=== PATIENT | female | born 1975 | race Caucasian/White ===

== ENCOUNTER 2018-09-17 14:23 | Emergency (ER) | payer OTHER ==
[2018-09-17 14:36] VITALS: TEMP 99
[2018-09-17] MEDS ORDERED: PROPARACAINE 0.5% OPHTH DROPS 15 ML BTL LEFT EYE STA (15:48)
--- NOTE | 2018-09-17 16:46 | ED ---
ENT HPI - General Chief complaint: ENT Stated complaint: [facility] FB OS Time Seen by Provider: 09/17/18 14:40 Source: patient Mode of arrival: ambulatory Limitations: no limitations - History of Present Illness Initial comments: Patient is a 43-year-old female presenting to the emergency department with pain to left eye. Patient states earlier today she was at work when a circular plastic piece with approximately 1 cm diameter fluid and hit her eye. Patient states it hit the medial aspect of her right eye. Patient states that her eye Tearing and she tried irrigating it with water several times until she came to the emergency department patient states that she still feels like there is something in her eye. Patient states that she has aching of her pain. Patient denies any blurry vision or headache. Patient states the pain is not radiating anywhere and she denies pain with extra ocular movements. - Related Data Allergies Allergy/AdvReac Type Severity Reaction Status Date / Time amoxicillin AdvReac Rash/Hives Verified 09/17/18 14:36 Review of Systems ROS Statement: Those systems with pertinent positive or pertinent negative responses have been documented in the HPI. ROS Other: All systems not noted in ROS Statement are negative. Past Medical History Past Medical History: No Reported History History of Any Multi-Drug Resistant Organisms: None Reported Past Surgical History: Hysterectomy Additional Past Surgical History / Comment(s): ectopic x 2 Past Psychological History: No Psychological Hx Reported Smoking Status: Current every day smoker Past Alcohol Use History: None Reported Past Drug Use History: Marijuana General Exam Limitations: no limitations General appearance: alert, in no apparent distress Head exam: Present: atraumatic, normocephalic, normal inspection Eye exam: Present: normal appearance, PERRL, EOMI, conjunctival injection ( mild), other (No pain with extra ocular movements). Absent: periorbital swelling Pupils: Present: normal accommodation Expanded Eyelids: Normal Inspection: Left Pupils: Regular, Round: Left Sclera/Conjunctival: Normal Inspection: Left ENT exam: Present: normal exam Neck exam: Present: normal inspection Respiratory exam: Present: normal lung sounds bilaterally. Absent: wheezes, rales Cardiovascular Exam: Present: regular rate, normal rhythm, normal heart sounds Neurological exam: Present: alert, oriented X3 Psychiatric exam: Present: normal affect, normal mood Skin exam: Present: warm, normal color Course Vital Signs 09/17/18 14:30 Temperature 99.0 F Pulse Rate 102 H Respiratory 18 Rate Blood Pressure 132/89 O2 Sat by Pulse 97 Oximetry Medical Decision Making - Medical Decision Making Patient is a 43-year-old female presenting to the emergency Department with left eye pain. Her left eye was examined with Wood's lamp and was unremarkable for any abrasion. Also a slit-lamp exam was performed and it showed minimal fluorescent stain accumulation near the medial aspect of that. Dr. Waddell also examined the patient and deemed that no immediate treatment or outpatient medication is necessary. Return parameters were discussed with patient. Patient advised to follow up with primary care. Disposition Clinical Impression: Pain, eye, left Disposition: HOME SELF-CARE Condition: Stable Instructions (If sedation given, give patient instructions): Eye Foreign Body (ED) Additional Instructions: Patient advised to follow-up with primary care. Patient laceration to emergency department is symptoms worsen. Is patient prescribed a controlled substance at d/c from ED?: No Referrals: None,Stated [Primary Care Provider] - 1-2 days Time of Disposition: 16:46
[2018-09-17 16:58] VITALS: BP 130/75; PULSE 88; RESP 20
== END 2018-09-17 16:57 | disposition home or self-care (01) ==
LOC: EC 14:23
DX: H57.12 Ocular pain, left eye (principal); F17.200 Nicotine dependence, unspecified, uncomplicated; Z88.0 Allergy status to penicillin; W22.8XXA Striking against or struck by other objects, initial encounter; Y92.69 Other specified industrial and construction area as the place of occurrence of the external cause; Y99.0 Civilian activity done for income or pay
CPT/HCPCS: 99283

== ENCOUNTER 2020-08-28 15:07 | Emergency (ER) | payer OTHER ==
[2020-08-28 15:12] VITALS: TEMP 98
--- NOTE | 2020-08-28 16:07 | ED ---
General Adult HPI - General Chief complaint: Abdominal Pain Stated complaint: abd pain Time Seen by Provider: 08/28/20 15:39 Source: patient Mode of arrival: ambulatory Limitations: no limitations - History of Present Illness Initial comments: Dictation was produced using [employer] dictation software. please excuse any grammatical, word or spelling errors. This patient was cared for during a federal and state declared state of emergency secondary to Covid 19 Chief Complaint: 45-year-old female presents with instructions from primary care doctor to come to the emergency department to be evaluated for abdominal pain. History of Present Illness: 45-year-old female she presents emergency department for abdominal pain. Patient states she's been having months of chronic abdominal pain. She states her symptoms are intermittent. She does not identify any exacerbating or mitigating factors. She states that she went for a routine appointment with her primary care physician. She was told to come to the emergency department because she had rebound tenderness. Patient states over the last week or so she's been having episodes of nausea, vomiting diarrhea and possibly GI bleed. Denies any constitutional symptoms. She has past medical history of hysterectomy and ectopic . She states that she has vague diffuse abdominal pain. She denies any exacerbating or remitting factors. She states that she does not notice any worsening postprandially. States that at bedside she currently feels asymptomatic. She was told that she needed to come to the emergency department for concerns of rebound tenderness to the right lower quadrant. She still has her appendix. The ROS documented in this emergency department record has been reviewed and confirmed by me. Those systems with pertinent positive or negative responses have been documented in the HPI. All other systems are other negative and/or noncontributory. PHYSICAL EXAM: General Impression: Alert and oriented x3, not in acute distress HEENT: Normocephalic atraumatic, extra-ocular movements intact, pupils equal and reactive to light bilaterally, mucous membranes moist. Cardiovascular: Heart regular rate and rhythm Chest: Able to complete full sentences, no retractions, no tachypnea Abdomen: abdomen soft, mild diffuse palpatory tenderness, non-distended, no organomegaly Musculoskeletal: Pulses present and equal in all extremities, no peripheral coy a Motor: no focal deficits noted Neurological: CN II-XII grossly intact, no focal motor or sensory deficits noted Skin: Intact with no visualized rashes Psych: Normal affect and mood ED course: -year-old female presents to the emergency department for abdominal pain. She was sent in by her primary care physician for evaluation of rebound tenderness in the right lower quadrant. Vital signs upon arrival are within acceptable limits. Patient wanted to be discharged. She states that she does not wait for the results. There's been a delay with reading patient's computed tomography scan of the abdomen and pelvis. Laboratory evaluation obtained. CBC, metabolic panel, abdominal labs are negative. Rotavirus test is negative. CT was briefly reviewed by myself shows no free air or any obvious fat stranding in the pelvis. Pending radiology reading. Patient is tolerating oral intake at bedside and she is well-appearing and in no acute distress. Per she wants to be discharge. Patient be discharged and we will call her with the results of her CT. - Related Data Allergies Allergy/AdvReac Type Severity Reaction Status Date / Time amoxicillin AdvReac Rash/Hives Verified 08/28/20 15:13 Review of Systems ROS Statement: Those systems with pertinent positive or pertinent negative responses have been documented in the HPI. ROS Other: All systems not noted in ROS Statement are negative. Past Medical History Past Medical History: No Reported History History of Any Multi-Drug Resistant Organisms: None Reported Past Surgical History: Hysterectomy Additional Past Surgical History / Comment(s): ectopic x 2 Past Psychological History: No Psychological Hx Reported Smoking Status: Current every day smoker Past Alcohol Use History: None Reported Past Drug Use History: Marijuana General Exam Limitations: no limitations Course Vital Signs 08/28/20 08/28/20 15:08 18:12 Temperature 98.0 F Pulse Rate 53 L 85 Respiratory 20 18 Rate Blood Pressure 144/53 145/85 O2 Sat by Pulse 99 100 Oximetry Medical Decision Making - Lab Data Result diagrams: 08/28/20 16:22 08/28/20 16:22 Lab Results 08/28/20 08/28/20 08/28/20 Range/Units 16:22 16:22 16:22 WBC 7.3 (3.8-10.6) k/uL RBC 4.35 (3.80-5.40) m/uL Hgb 14.4 (11.4-16.0) gm/dL Hct 42.5 (34.0-46.0) % MCV 97.7 (80.0-100.0) fL MCH 33.0 (25.0-35.0) pg MCHC 33.8 (31.0-37.0) g/dL RDW 13.0 (11.5-15.5) % Plt Count 190 (150-450) k/uL MPV 7.8 Neutrophils % 56 % Lymphocytes % 32 % Monocytes % 4 % Eosinophils % 6 % Basophils % 1 % Neutrophils # 4.1 (1.3-7.7) k/uL Lymphocytes # 2.3 (1.0-4.8) k/uL Monocytes # 0.3 (0-1.0) k/uL Eosinophils # 0.4 (0-0.7) k/uL Basophils # 0.1 (0-0.2) k/uL Sodium 139 (137-145) mmol/L Potassium 4.4 (3.5-5.1) mmol/L Chloride 107 (98-107) mmol/L Carbon Dioxide 26 (22-30) mmol/L Anion Gap 6 mmol/L BUN 12 (7-17) mg/dL Creatinine 0.86 (0.52-1.04) mg/dL Est GFR (CKD-EPI)AfAm >90 (>60 ml/min/1.73 sqM) Est GFR (CKD-EPI)NonAf 83 (>60 ml/min/1.73 sqM) Glucose 96 (74-99) mg/dL Calcium 9.5 (8.4-10.2) mg/dL Total Bilirubin 0.3 (0.2-1.3) mg/dL AST 21 (14-36) U/L ALT 13 (4-34) U/L Alkaline Phosphatase 74 (38-126) U/L Total Protein 7.4 (6.3-8.2) g/dL Albumin 4.4 (3.5-5.0) g/dL Lipase 44 (23-300) U/L Coronavirus (PCR) Not Detected (Not Detectd) Disposition Clinical Impression: Abdominal pain Disposition: HOME SELF-CARE Condition: Fair Instructions (If sedation given, give patient instructions): Abdominal Pain (ED) Is patient prescribed a controlled substance at d/c from ED?: No Referrals: Shira Renae MD [Primary Care Provider] - 1-2 days Decision Time: 18:54
[2020-08-28 16:29] LABS: Basophils # (A) 0.1 k/uL (0-0.2); Basophils % (A) 1 %; Eosinophils # (A) 0.4 k/uL (0-0.7); Eosinophils % (A) 6 %; HCT 42.5 % (34.0-46.0); HGB 14.4 gm/dL (11.4-16.0); Lymphocytes # (A) 2.3 k/uL (1.0-4.8); Lymphocytes % (A) 32 %; MCHC 33.8 g/dL (31.0-37.0); MCV 97.7 fL (80.0-100.0); Mean Platelet Volume 7.8; Monocytes # (A) 0.3 k/uL (0-1.0); Monocytes % (A) 4 %; Neutrophils # (A) 4.1 k/uL (1.3-7.7); Neutrophils % (A) 56 %; Platelet Count 190 k/uL (150-450); RBC 4.35 m/uL (3.80-5.40); WBC 7.3 k/uL (3.8-10.6)
[2020-08-28 16:41] LABS: ALT 13 U/L (4-34); AST 21 U/L (14-36); African American GFR (CKD) >90 (>60 ml/min/1.73 sqM); Albumin 4.4 g/dL (3.5-5.0); Alkaline Phosphatase 74 U/L (38-126); Anion Gap 6 mmol/L; Blood Urea Nitrogen 12 mg/dL (7-17); Calcium 9.5 mg/dL (8.4-10.2); Carbon Dioxide 26 mmol/L (22-30); Chloride 107 mmol/L (98-107); Glucose 96 mg/dL (74-99); Lipase 44 U/L (23-300); Non-African American GFR(CKD) 83 (>60 ml/min/1.73 sqM); Potassium 4.4 mmol/L (3.5-5.1); Sodium 139 mmol/L (137-145); Total Bilirubin 0.3 mg/dL (0.2-1.3); Total Protein 7.4 g/dL (6.3-8.2)
[2020-08-28 18:17] VITALS: BP 145/85; PULSE 85; RESP 18
[2020-08-28] MEDS ORDERED: MORPHINE SULFATE 4 MG/ML SYRINGE IVP STA (18:49)
--- NOTE | 2020-08-28 19:13 | CT ---
EXAMINATION TYPE: CT abdomen pelvis w con DATE OF EXAM: 08/28/2020 COMPARISON: None HISTORY: diffuse abdominal pain, nausea CT DLP: 1472.5 mGycm Automated exposure control for dose reduction was used. TECHNIQUE: Helical acquisition of images was performed from the lung bases through the pelvis. CONTRAST: Performed without Oral Contrast and with IV Contrast, patient injected with 100 mL of Isovue 300. FINDINGS: LUNG BASES: Normal. LIVER: Normal. BILIARY SYSTEM: Normal. PANCREAS: Normal. SPLEEN: Round hypodensity of the posterior spleen is within Hounsfield units of simple cyst. ADRENALS: Normal. KIDNEYS: No hydronephrosis bilaterally. There may be a very tiny fat density angiomyolipoma versus co rtical defect of the lower pole of the left kidney (202:62, 203:81). BOWEL: No obstruction or thickening. Colonic diverticulosis. No acute diverticulitis. Normal appendi x. PERITONEUM: No pneumoperitoneum. No free fluid. LYMPH NODES: No lymphadenopathy. PELVIS: Normal. VASCULATURE: No abdominal aortic aneurysm. MUSCULOSKELETAL: Degenerative changes of the spine. IMPRESSION: 1. No acute findings to explain patient's abdominal pain. 2. Nonacute findings as above.
== END 2020-08-28 18:59 | disposition home or self-care (01) ==
LOC: EC 15:07
DX: R10.84 Generalized abdominal pain (principal); F17.200 Nicotine dependence, unspecified, uncomplicated; F12.90 Cannabis use, unspecified, uncomplicated; Z88.0 Allergy status to penicillin; Z20.822 Contact with and (suspected) exposure to COVID-19
CPT/HCPCS: 36415; 80053; 83690; 85025; 87635; 74177; 99284; 96374; Q9967

== ENCOUNTER → 2020-11-23 | Outpatient (CLI) | payer OTHER | END | disposition home or self-care (01) | LOC: RADUSWWP 08:57 | PROVIDERS: ATTEND Nurse Practitioner Family | DX: Z53.9 Procedure and treatment not carried out, unspecified reason (principal) ==

== ENCOUNTER → 2020-12-10 | Outpatient (CLI) | payer OTHER ==
--- NOTE | 2020-12-10 09:31 | US ---
EXAMINATION TYPE: US kidneys/renal and bladder DATE OF EXAM: 12/10/2020 COMPARISON: CT 08/28/2020 CLINICAL HISTORY: 45-year-old female N28.9 Lesions on left [place] kidney. TECHNIQUE: Multiple sonographic images of the kidneys and bladder are obtained. FINDINGS: EXAM MEASUREMENTS: Right Kidney: 9.1 x 4.2 x 5.3 cm Left Kidney: 10.7 x 5.3 x 5.4 cm Right Kidney: No hydronephrosis. Left Kidney: Small echogenic lesion lower pole measures 0.6 x 0.5 x 0.6. No hydronephrosis. Bladder: not well distended Bilateral Jets seen: Yes IMPRESSION: Tiny 6 mm echogenic cortical lesion lower pole left kidney may correspond to the CT finding. 6-12 mon th follow-up ultrasound recommended to reassess. 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 No hydronephrosis.
--- NOTE | 2020-12-10 10:08 | XR ---
EXAMINATION TYPE: XR cervical spine comp DATE OF EXAM: 12/10/2020 COMPARISON: None HISTORY: 45-year-old female R2 0.2 TECHNIQUE: 5 views FINDINGS: Facet and uncovertebral joint arthropathy mid to lower cervical spine. Changes result in moderate bon y neuroforaminal narrowing on the left at C6-C7 and mild at C5-C6. On the right, changes result in mi ld bony neuroforaminal narrowing C5-C6 and C6-C7. No predental space widening or prevertebral soft ti ssue swelling. Trace grade 1 anterolisthesis C4-C5. Otherwise, alignment maintained though there is r eversal of the normal cervical lordosis. Moderate disc/endplate degenerative change C5-C6 with disc s pace narrowing and endplate spondylosis. Normal odontoid view. 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 Degenerative trace grade 1 anterolis thesis at C4-C5. Mild bony neuroforaminal narrowing lower cervical spine at C5-C6 and C6-C7, moderate on the left at C6-C7.
== END | disposition home or self-care (01) ==
LOC: RADUSWWP 07:37
PROVIDERS: ATTEND Family Medicine
DX: N28.9 Disorder of kidney and ureter, unspecified (principal); M47.812 Spondylosis without myelopathy or radiculopathy, cervical region; M43.12 Spondylolisthesis, cervical region; M99.71 Connective tissue and disc stenosis of intervertebral foramina of cervical region
CPT/HCPCS: 72050; 76770

== ENCOUNTER → 2021-02-05 | Outpatient (CLI) | payer OTHER | END | disposition home or self-care (01) | LOC: LABWHC1 14:35 | PROVIDERS: ATTEND Family Medicine | DX: Z20.822 Contact with and (suspected) exposure to COVID-19 (principal); R05 Cough; R43.2 Parageusia; R43.0 Anosmia | CPT/HCPCS: U0003; U0005 ==